=== PATIENT | male | born 1960 | race Caucasian/White ===

== ENCOUNTER 2016-12-18 11:18 | Inpatient (IN) | payer MEDICARE ==
[~2016-12-18] VITALS: Ht 190.5 cm; Wt 122.8 kg
[2016-12-18] VITALS (7 sets, daily range): BP systolic 109–182; BP diastolic 61–130; BMI 35.8
[2016-12-18 12:11] LABS: BASOPHILS 0.4 % (0.0-2.0); EOSINOPHILS 1.9 % (0-7); HEMATOCRIT 47.5 % (42.0-54.0); HEMOGLOBIN 15.3 g/dL (13.5-17.5); IMMATURE GRANULOCYTES 0.3 % (0-5); LYMPHOCYTES 36.3 % (15-50); MCH 28.2 pg (26.0-34.0); MCHC 32.2 g/dL (31.0-37.0); MCV 87.6 fL (80.0-100.0); MEAN PLATELET VOLUME 9.9 fL (7.4-10.4); MONOCYTES 9.4 % (2-11); NEUTROPHILS 51.7 % (40-80); PLATELET COUNT 224 10x3/uL (130-400); RBC 5.42 10x6/uL (4.20-6.10); RDW 14.9 % (11.5-14.5); WBC 11.8 10x3/uL (4.8-10.8)
[2016-12-18 12:25] LABS: ALBUMIN 2.9 g/dL (3.4-5.0); ALKALINE PHOSPHATASE 145 U/L (46-116); ALT (SGPT) 64 U/L (10-68); CALC OSMOLALITY 283 mosm/kg (275-300); CALCIUM 9.2 mg/dL (8.5-10.1); CHLORIDE - SERUM 107 mmol/L (98-107); CREATININE - SERUM 1.3 mg/dL (0.6-1.3); GLUCOSE 105 mg/dL (74-106); PROTEIN - SERUM 6.5 g/dL (6.4-8.2); SODIUM 141 mmol/L (136-145); UREA NITROGEN 20 mg/dL (7-18); eGFR NON AFRICAN AMERICAN 61 mL/min (90-120)
[2016-12-18 12:41] LABS: CKMB 7.1 U/L (0.0-3.6); PRO BNP 4340 pg/mL (0-125)
[2016-12-18 12:42] LABS: TROPONIN-I 0.108 ng/mL (0.000-0.060)
[2016-12-18 14:20] LABS: HEMOGLOBIN A1C 6.1 % (4.8-6.0)
[2016-12-18 15:09] LABS: LDL-HDL RATIO 3.3 ratio (1.5-3.5)
--- NOTE | 2016-12-18 16:17 | NUR ---
PATIENT HERE FROM ER VIA [facility]. ADMISSION IN PROGRESS. DR HERRERA PAGED FOR A B/P OF 182/130.
--- NOTE | 2016-12-18 16:18 | NUR ---
PER DR HERRERA, DR BROWN WILL HANDLE THE BLOOD PRESSURE.
--- NOTE | 2016-12-18 16:20 | NUR ---
DR KEVIN HAYNES.
--- NOTE | 2016-12-18 16:27 | NUR ---
SPOKE WITH DR BROWN. ONE TIME ORDER FOR CLONIDINE RECEIVED AND ORDER TO RESTART HOME BLOOD PRESSURE MEDICATIONS. PATIENT IS AWARE OF NAMES BUT NOT DOSES. CALL HAS BEEN PLACED TO [facility] TO OBTAIN LIST.
[2016-12-18] MEDS ORDERED: HYDROCODON-ACE1 EAC9 PO (16:42)
[2016-12-18] MEDS ORDERED: ZESTRIL40 MG PO (16:54)
[2016-12-18] MEDS ORDERED: TOPROL XL100 MG PO (16:54)
[2016-12-18] MEDS ORDERED: MOBIC7.5 MG PO (16:55)
--- NOTE | 2016-12-18 17:17 | NUR ---
PER DR BROWN, DR TORRES PAGED TO SEE IF OK TO START LOVENOX.
--- NOTE | 2016-12-18 17:20 | NUR ---
SPOKE WITH DR TORRES. HE IS OK WITH THE LOVENOX ORDER PER DR BROWN
[2016-12-18 17:46] LABS: UDS - AMPHET NEGATIVE QUAL (NEGATIVE); UDS - BARB NEGATIVE QUAL (NEGATIVE); UDS - BENZO NEGATIVE QUAL (NEGATIVE); UDS - COCAINE NEGATIVE QUAL (NEGATIVE); UDS - METH NEGATIVE QUAL (NEGATIVE); UDS - OPIATE POSITIVE QUAL (NEGATIVE); UDS - PCP NEGATIVE QUAL (NEGATIVE); UDS - THC NEGATIVE QUAL (NEGATIVE)
--- NOTE | 2016-12-18 19:40 | NUR ---
PT AOX4. SOB, DIMINISHED LUNG SOUNDS. NC @ 3L, SPO2 96. PT UP IN BED, HOB 40. PERIPHERAL PULSES WEAK. LT BKA. RT LOWER LEG/FOOT WITH DISCOLORATION (PURPLE) AND SORES TO TOES. NO C/O PAIN AT THIS TIME. VSS. FRESH WATER TO BEDSIDE. DEIES FURTHER NEEDS AT THIS TIME. ROOM VISIBLE FROM NURSES STATION. CALL LIGHT AND BEDSIDE TABLE WITHIN PT REACH. CPOC.
--- NOTE | 2016-12-18 21:33 | NUR ---
AT BEDSIDE, QUESTIONS ANSWERED AND UPDATE GIVEN. PT REPOSITIONS SELF WITH MINIMAL ASSISTANCE. VOICES NO NEEDS AT THIS TIME. CALL LIGHT AND BEDSIDE TABLE WITHIN PT REACH. ROOM VISIBLE FROM NURSES STATION. CPOC.
[2016-12-19] VITALS (24 sets, daily range): BP systolic 87–159; BP diastolic 35–111; Ht 190.5 cm; Wt 122.8 kg
[2016-12-19 04:49] LABS: BASOPHILS 0 % (0.0-2.0); EOSINOPHILS 0 % (0-7); HEMATOCRIT 49.9 % (42.0-54.0); HEMOGLOBIN 15.8 g/dL (13.5-17.5); IMMATURE GRANULOCYTES 0.2 % (0-5); LYMPHOCYTES 13.5 % (15-50); MCH 28.4 pg (26.0-34.0); MCHC 31.7 g/dL (31.0-37.0); MEAN PLATELET VOLUME 10.7 fL (7.4-10.4); MONOCYTES 2.5 % (2-11); NEUTROPHILS 83.8 % (40-80); PLATELET COUNT 235 10x3/uL (130-400); RBC 5.57 10x6/uL (4.20-6.10); WBC 11.7 10x3/uL (4.8-10.8)
[2016-12-19 04:54] LABS: MCV 89.6 fL (80.0-100.0)
[2016-12-19 05:06] LABS: ALBUMIN 2.9 g/dL (3.4-5.0); BILIRUBIN - TOTAL 1.02 mg/dL (0.2-1.3); CALCIUM 8.7 mg/dL (8.5-10.1); CARBON DIOXIDE 26.8 mmol/L (21.0-32.0); MAGNESIUM - SERUM 1.9 mg/dL (1.8-2.4); PROTEIN - SERUM 6.3 g/dL (6.4-8.2)
[2016-12-19 05:12] LABS: ANION GAP 13.7 mmol/L (8-16); CREATININE - SERUM 1.9 mg/dL (0.6-1.3); POTASSIUM - SERUM 5.5 mmol/L (3.5-5.1)
--- NOTE | 2016-12-19 06:00 | NUR ---
PT UP IN CHAIR, SOB AND DYSPNEA PRESENT. COUGH/DB WITH GOOD EFFORT. NC @ 6L, SPO2 97.
--- NOTE | 2016-12-19 07:30 | NUR ---
SHIFT ASSESSMENT VIA FLOWSHEET, SEE FOR DETAILS.
--- NOTE | 2016-12-19 08:15 | NUR ---
ASSISTED PT BACK TO BED.
--- NOTE | 2016-12-19 09:10 | NUR ---
NO VISITORS AT THIS TIME. PT IN BED, AROUSES TO VOICE. VSS, CALL LIGHT WITHIN REACH.
--- NOTE | 2016-12-19 11:00 | NUR ---
REASSESSMENT VIA FLOWSHEET, SEE FOR DETAILS.
--- NOTE | 2016-12-19 14:54 | NUR ---
Is the patient Alert and Oriented? Yes 0 * How many steps to enter\exit or inside your home? 1 0 * PCP DOES NOT HAVE ONE 0 * Pharmacy [facility] 0 * Preadmission Environment Home with Family 0 * ADLs Independent 0 * Equipment None 0 * List name and contact numbers for known caregivers / representatives who currently or will assist patient after discharge: SPOUSE: [place] [phone] 0 * Community resources currently utilized None 0 * Additional services required to return to the preadmission environment? No 0 * Can the patient safely return to the preadmission environment? Yes 0 * Has this patient been hospitalized within the prior 30 days at any hospital? No PATIENT IS AWAKE AND ALERT. HE STATES HE LIVES AT HOME WITH HIS , CHARLOTTE. HE STATES HE WAS INDEPENDENT IN HIS ADL'S PRIOR TO COMING TO THE HOSPITAL. PATIENT STATES HIS WILL BE AVAILABLE TO DRIVE HIM HOME AT DISCHARGE. HE DOES NOT HAVE A PCP. HE GETS HIS MEDS FROM [facility]. PATIENT DENIES USE OF ANY EQUIPMENT. HE STATES HE HAD HOME HEALTH FROM [facility] ABOUT 18 MONTHS AGO AFTER AN AMPUTATION. PATIENT STATES THERE IS ONLY 1 STEP TO ENTER HIS HOME. DISCHARGE NEEDS UNDETERMINED AT THIS TIME. CM TO FOLLOW.
--- NOTE | 2016-12-19 15:00 | NUR ---
REASSESSMENT VIA FLOWSHEET, SEE FOR DETAILS.
--- NOTE | 2016-12-19 18:30 | NUR ---
PT ASSISTED TO BSC.
--- NOTE | 2016-12-19 19:00 | NUR ---
REPORT RECEIVED AND ASSESSMENT COMPLETED. SEE FLOWSHEET FOR DETAILS. PT IN CHAIR. LEFT HAND SALINE LOCK IV PULLED OUT BY PT ON ACCIDENT. RIGHT HAND IV NO LONGER PATENT. WILL REPLACE.
--- NOTE | 2016-12-19 21:00 | NUR ---
2100 MEDS GIVEN. RIGHT HAND IV RESITED. NEW VEIN IN RIGHT HAND USED.
--- NOTE | 2016-12-19 23:26 | NUR ---
REASSESSMENT COMPLETED. SEE FLOWSHEET.
[2016-12-20] VITALS (23 sets, daily range): BP systolic 88–154; BP diastolic 59–122
--- NOTE | 2016-12-20 01:22 | NUR ---
PT ACCIDENTLY PULLED NEW IV OUT. WILL RESITE BEFORE NEXT MED IS GIVEN.
--- NOTE | 2016-12-20 03:00 | NUR ---
REASSESSMENT COMPLETED. SEE FLOWSHEET.
[2016-12-20 03:35] LABS: BASOPHILS 0.1 % (0.0-2.0); EOSINOPHILS 0 % (0-7); HEMATOCRIT 48.8 % (42.0-54.0); HEMOGLOBIN 15.7 g/dL (13.5-17.5); IMMATURE GRANULOCYTES 0.3 % (0-5); LYMPHOCYTES 8.5 % (15-50); MCH 28.4 pg (26.0-34.0); MCHC 32.2 g/dL (31.0-37.0); MCV 88.2 fL (80.0-100.0); MEAN PLATELET VOLUME 10.4 fL (7.4-10.4); NEUTROPHILS 86.1 % (40-80); PLATELET COUNT 230 10x3/uL (130-400); RBC 5.53 10x6/uL (4.20-6.10); WBC 18.4 10x3/uL (4.8-10.8)
[2016-12-20 03:53] LABS: ANION GAP 10.5 mmol/L (8-16); BILIRUBIN - TOTAL 0.57 mg/dL (0.2-1.3); CALCIUM 8.6 mg/dL (8.5-10.1); CARBON DIOXIDE 27.2 mmol/L (21.0-32.0); CREATININE - SERUM 1.8 mg/dL (0.6-1.3); MAGNESIUM - SERUM 1.9 mg/dL (1.8-2.4); PHOSPHOROUS 5.2 mg/dL (2.5-4.9); POTASSIUM - SERUM 4.7 mmol/L (3.5-5.1); PROTEIN - SERUM 6.3 g/dL (6.4-8.2)
--- NOTE | 2016-12-20 05:00 | NUR ---
NO CHANGES IN STATUS AT TIME. WILL MONITOR
--- NOTE | 2016-12-20 10:30 | NUR ---
REPORT RECD PT CARE ASSUMED. PT IS RESTING QUIETLY IN BED AT THIS TIME.
--- NOTE | 2016-12-20 11:30 | NUR ---
PT PROVIDED WITH LUNCH TRAY. PT CONTINUES TO REST WITH OUT COMPLAINT OR REQUEST.
--- NOTE | 2016-12-20 19:05 | NUR ---
SHIFT ASSESSMENT COMPLETE. PATIENT RESTING QUIETLY IN BED, IS ALERT AND ORIENTED. NC @ 3L, S1S2 NOTED, EXPIRATIORY WHEEZES HEARD WITH LUNG SOUNDS. BOWEL SOUNDS ACTIVE X4. ABDOMEN NON DISTENED, NON-TENDER TO PALPATION. PERIPHERAL PULSES +2, LEFT LEG BKA. PIV IN LEFT WRIST, SITE C/D/I. VSS, WILL CONTINUE TO MONITOR.
--- NOTE | 2016-12-20 19:30 | NUR ---
PIV IN LEFT WRIST INFILTRATED, RESITED TO LEFT HAND. 22G INSERTED PER 1 ATTEMPT. SITE IS DRESSED, C/D/I. PATIENT TOLERATED WELL.
--- NOTE | 2016-12-20 21:00 | NUR ---
2100 MEDS GIVEN, SANDWHICH GIVEN PER REQUEST. AT BEDSIDE. PATIENT DENIES FURTHER NEED. VSS.
--- NOTE | 2016-12-20 22:00 | NUR ---
PATIENT HAD LARGE, SOFT, LIGHT BROWN BM. BACK TO BED AND REPOSITIONED FOR COMFORT.
--- NOTE | 2016-12-20 23:00 | NUR ---
REASSESSMENT COMPLETE. NO CHANGES AT THIS TIME. VSS.
[2016-12-21] VITALS (13 sets, daily range): BP systolic 124–168; BP diastolic 11–106
--- NOTE | 2016-12-21 01:00 | NUR ---
PATIENT RESTING WITH EYES CLOSED. RR REGULAR WITH NON-LABORED BREATHING.
--- NOTE | 2016-12-21 03:00 | NUR ---
REASSESSMENT COMPLETE. NO ACUTE CHANGES.
[2016-12-21 04:49] LABS: BASOPHILS 0 % (0.0-2.0); EOSINOPHILS 0 % (0-7); HEMOGLOBIN 15.9 g/dL (13.5-17.5); IMMATURE GRANULOCYTES 0.3 % (0-5); LYMPHOCYTES 5.3 % (15-50); MCH 28.5 pg (26.0-34.0); MCHC 32.4 g/dL (31.0-37.0); MCV 87.8 fL (80.0-100.0); MEAN PLATELET VOLUME 10.7 fL (7.4-10.4); MONOCYTES 5.3 % (2-11); NEUTROPHILS 89.1 % (40-80); PLATELET COUNT 215 10x3/uL (130-400); RBC 5.58 10x6/uL (4.20-6.10); RDW 15.2 % (11.5-14.5); WBC 18.4 10x3/uL (4.8-10.8)
[2016-12-21 05:12] LABS: ALBUMIN 2.8 g/dL (3.4-5.0); ANION GAP 13.8 mmol/L (8-16); BILIRUBIN - TOTAL 0.4 mg/dL (0.2-1.3); CALCIUM 8.5 mg/dL (8.5-10.1); CARBON DIOXIDE 26.2 mmol/L (21.0-32.0); CREATININE - SERUM 1.7 mg/dL (0.6-1.3); PROTEIN - SERUM 6.2 g/dL (6.4-8.2)
--- NOTE | 2016-12-21 10:27 | NUR ---
0700 RECEIEVED PT LAYING IN BED EYES OPEN ALERT ORIENTED ABLE TO ANSWER ALL QUESTIONS APPROP. VSS 02 SAT 98% ON 3L LUNGS DIMINSHED ON LEFT WITH WHEEZES NOTED ON RIGHT. USES URINAL AND BSC. LEFT BKA NO C/O AT THIS TIME. 0730 BREAKFAST GIVEN 100% ATE 1000 RECEVED ORDERS TO MOVE TO THE FLOOR PER PCP
--- NOTE | 2016-12-21 11:08 | NUR ---
PT TO FLOOR FROM ICU, ALERT AND ORIENTED X3, LUNGS ON LEFT SOUND CLEAR RIGHT SIDE HAS SOME WHEEZING AND RUMBLING, PT REQUESTED TO SIT IN WHEELCHAIR FOR A WHILE IT HOW HE SITS AT HOME, ORIENTED TO ROOM, BED LOWEST POSITION, CALL LIGHT IN REACH, NO COMPLAINTS AT THIS TIME
--- NOTE | 2016-12-21 15:00 | NUR ---
SITTING UP IN CHAIR AT BEDSIDE. DENIES NEEDS. LEFT BKA HAS A SCABBED AREA TO INNER PORTION OF INCISION. WILL MONITOR.
--- NOTE | 2016-12-21 17:51 | NUR ---
PT RESTING QUIETLY IN BED, EASILY AROUSED, VOICES NO COMPLAINTS, MEDS GIVEN PER JAN, CALL LIGHT IN REACH, BED LOWEST POSITION, WILL CONTINUE TO MONITOR
--- NOTE | 2016-12-21 19:30 | NUR ---
REC'D IN BED WITH EYES CLOSED EASILY AROUSED WHEN NAME IS CALLED. RESP EVEN AND UNLABORED WITH NO DISTRESS NOTED. NO C/O NOTED OR VOICED. ASSESSMENT COMPLETED. C/L IN REACH AT BEDSIDE.
[2016-12-22] VITALS: BP 153/98
--- NOTE | 2016-12-22 00:18 | NUR ---
PATIENT RESTING WITH EYES CLOSED. NO SIGNS OF DISTRESS. BED IN LOWEST POSITION AND CALL LIGHT WITHIN REACH.
[2016-12-22 04:00] VITALS: BP 138/84
[2016-12-22 07:15] LABS: BASOPHILS 0 % (0.0-2.0); EOSINOPHILS 0 % (0-7); HEMATOCRIT 46.7 % (42.0-54.0); IMMATURE GRANULOCYTES 0.2 % (0-5); LYMPHOCYTES 5.8 % (15-50); MCH 27.9 pg (26.0-34.0); MCHC 32.1 g/dL (31.0-37.0); MEAN PLATELET VOLUME 10.2 fL (7.4-10.4); MONOCYTES 6.8 % (2-11); NEUTROPHILS 87.2 % (40-80); PLATELET COUNT 209 10x3/uL (130-400); RBC 5.37 10x6/uL (4.20-6.10); RDW 15.2 % (11.5-14.5); WBC 15.7 10x3/uL (4.8-10.8)
[2016-12-22 07:53] LABS: ANION GAP 13.1 mmol/L (8-16); BILIRUBIN - TOTAL 0.71 mg/dL (0.2-1.3); CALCIUM 8.3 mg/dL (8.5-10.1); CARBON DIOXIDE 27.8 mmol/L (21.0-32.0); CREATININE - SERUM 1.7 mg/dL (0.6-1.3); POTASSIUM - SERUM 3.9 mmol/L (3.5-5.1); PROTEIN - SERUM 6.1 g/dL (6.4-8.2)
[2016-12-22 08:04] VITALS: BP 160/98
--- NOTE | 2016-12-22 08:04 | NUR ---
AWAKE AND ALERT. ORIENTED X3. NO C/O AT THIS TIME. LUNGS WITH CRACKLES THROUGHTOUT RIGHT LUNGS, REPORTS COUGH WITH YELLOWISH SPUTUM. SKIN IS INTACT WITHOUT REDNESS EXCEPT SCABBED AREA TO LEFT BKA. THIS IS REPORTED TO BE OLD AND SHOWS NO SIGNS OF INFECTION. SL TO LEFT HAND PATENT WITHOUT REDNESS AT INSERTION SITE. DENIES NEEDS.
--- NOTE | 2016-12-22 10:00 | NUR ---
ATE ALL OF BREAKFAST. RESTING IN BED WITH EYES CLOSED. ENCOURAGED TO BE UP TODAY SO NOT TO GET CONFUSED WITH DAY/NIGHT.
--- NOTE | 2016-12-22 12:15 | NUR ---
LUNCH SERVED IN ROOM. FEEDS SELF. DENIES NEEDS.
[2016-12-22 12:28] VITALS: BP 150/102
--- NOTE | 2016-12-22 14:40 | NUR ---
PT. COMPLAINS OF LEAKING IV ON LEFT HAND. IV DISCONTINUED WITH CATHETER INTACT. PT. TOLERATED WITHOUT DIFFICULTY AT THIS TIME.
--- NOTE | 2016-12-22 15:00 | NUR ---
IV TO LEFT HAND LEAKING. RESITED TO RIGHT UPPER ARM AFTER 3 ATTEMPTS WITH 22G. PATIENT TOLERATED WITHOUT C/O PAIN.
[2016-12-22 16:14] VITALS: BP 168/94
--- NOTE | 2016-12-22 20:45 | NUR ---
PT EDUCATION REGARDING SMOKING AND QUITTING COMPLETED ALTERNATIVES GIVEN TO PT WHERE USE OF STRAWS, E-CIG WITH NO NICOTINE OILS, CHEW GUM, PATCH, AND SUCKERS PT VERBALIZED UNDERSTANDING AND APPERED TO HAVE WHAT TO, TO QUIT SMOKING. LUNGS CRACKLES BILATERAL UPPER LOBES AND DIMINISHED LOWER LOBES BILATERAL RESPERATIONS EVEN AND UNLABORED WILL MONITOR
[2016-12-22 21:00] VITALS: BP 162/96
[2016-12-23 02:00] VITALS: BP 166/90
[2016-12-23 05:35] LABS: BASOPHILS 0 % (0.0-2.0); EOSINOPHILS 0 % (0-7); HEMATOCRIT 46.5 % (42.0-54.0); IMMATURE GRANULOCYTES 0.3 % (0-5); LYMPHOCYTES 5.7 % (15-50); MCH 28.1 pg (26.0-34.0); MCHC 32.3 g/dL (31.0-37.0); MCV 87.1 fL (80.0-100.0); MONOCYTES 10.7 % (2-11); NEUTROPHILS 83.3 % (40-80); PLATELET COUNT 219 10x3/uL (130-400); RBC 5.34 10x6/uL (4.20-6.10); RDW 15.1 % (11.5-14.5); WBC 17.5 10x3/uL (4.8-10.8)
[2016-12-23 06:47] LABS: ALBUMIN 2.9 g/dL (3.4-5.0); ANION GAP 17.8 mmol/L (8-16); BILIRUBIN - TOTAL 0.73 mg/dL (0.2-1.3); CALCIUM 8.4 mg/dL (8.5-10.1); CARBON DIOXIDE 24.1 mmol/L (21.0-32.0); CREATININE - SERUM 2.1 mg/dL (0.6-1.3); POTASSIUM - SERUM 3.9 mmol/L (3.5-5.1); PROTEIN - SERUM 5.7 g/dL (6.4-8.2)
--- NOTE | 2016-12-23 08:33 | NUR ---
PT. AWAKE AND ALERT SITTING ON THE SIDE OF THE BED EATING BREAKFAST. PT DENIES NEEDS AT THIS TIME. RESP. EVEN AND NONLABORED PRODUCTIVE COUGH WITH GREENISH/YELLOWISH TO WHITE SPUTUM. LUNG SOUNDS RONCHI PRESENT BILATTERALLY WITH DIMINISHED LUNG SOUNDS ON LOWER LOBES. SKIN PINK WARM AND DRY WITH NO REDNESS LEFT BKA HEALED WITH DRY SKIN AT SI. IV SL TO RIGHT UPPER ARM CLEAN DRY PATENT AND INTACT. AND FLUSHED NO REDNESS AT OR AROUND SITE. [id number]. 500 ML OF CLEAR YELLOW URINE IN URINAL. BED AT LOWEST POSITION AND SR X 2 WITH CALL WITHIN REACH. WILL CONTINUE TO MONITOR.
[2016-12-23 08:52] VITALS: BP 173/117
--- NOTE | 2016-12-23 15:30 | NUR ---
NUTRITION MONITORING & EVAL CHART REVIEWED. PT TOLERATING AHA DIET. 100% INTAKE RECENT MEALS. WILL CONTINUE TO PROVIDE DIET, MONITOR PO INTAKE. RD FOLLOWING
[2016-12-23 15:32] VITALS: BP 162/117
[2016-12-23 16:52] LABS: ERYTHROCYTE SEDIMENTATION RATE 1 mm/hr (0-20)
--- NOTE | 2016-12-23 17:19 | NUR ---
PATIENT HAS LEFT AMA. ATTEMPTS TO PERSUADE PATIENT TO STAY WITHOUT SUCCESS. SL TO RIGHT UPPER ARM D/C WITH CATHETER INTACT.
[2016-12-25 20:08] LABS: SPE - A/G RATIO 1.2 (0.7-1.7); SPE - ALPHA-1 GLOBULIN 0.3 g/dL (0.0-0.4); SPE - ALPHA-2 GLOBULIN 0.7 g/dL (0.4-1.0); SPE - GAMMA GLOBULIN 0.6 g/dL (0.4-1.8); SPE - M-SPIKE Not Observed g/dL (Not Observed); SPE - TOTAL PROTEIN 5.5 g/dL (6.0-8.5)
--- NOTE | 2017-01-21 08:17 | EC ---
PATIENT:SHANTELL JACOBS DATE OF SERVICE: 12/18/16 SEX: M MEDICAL RECORD: [id number] DATE OF : 62 LOCATION:[facility] AGE OF PATIENT: 56 ADMISSION DATE: 12/18/16 REFERRING PHYSICIAN: INTERPRETING PHYSICIAN: RACHELLE MINOR M.D. ECHOCARDIOGRAM REPORT ECHO CHARGES 4 ECHO COMPLETE CLINICAL DIAGNOSIS: NEW ONSET CHF ECHOCARDIOGRAPHIC MEASUREMENTS (adult normal given) AC root (d.<3.7cm) 3.6 LV Septum d (<1.2 cm> 1.5 Valve Excursion 2.2 LV Septum (systole) 1.8 Left Atria (s.<4.0cm> 5.6 LVPW d(<1.2cm) 1.6 RV (d.<2.3cm) 3.7 LVPW (sytole) 1.8 LV diastole(<5.6CM) 6.2 MV E-F(>70mm/sec) LV systole 5.4 LVOT Diameter 2.5 MV exc.(>10mm) Est.ejection fraction (50-75%) Pericardial Effusion N DOPPLER: LVIT A 49.0 E 90.0 LA RVSP 46.0 LVOT 64.0 AOP1/2T Asc. Ao 109 RVOT 56.0 RA PA 51.0 AV Gradient Peak 4.8 AV Mean 2.1 AV Area 2.8 MV Gradient Peak 4.4 MV Mean 1.7 MV Area COMMENTS: Bicycle Mechanic: Matias SAVAGE Portable Pinch Riveter:Mulu Minor TAPE# PACS DATE OF SERVICE: 12/18/2016 INDICATION: Congestive heart failure. DESCRIPTION: Left ventricle is moderately dilated. There is severe LV dysfunction noted. His ejection fraction is in the order of 15% to 20%. There appears to be a calcified thrombus in the left ventricle apex. Mitral valve is structurally normal. There is moderate regurgitation seen. Left atrium is moderately dilated. The aortic valve is trileaflet. There is no stenosis or regurgitation seen. Right ventricle is moderately dilated. Tricuspid valve is ECHOCARDIOGRAM REPORT [id number] SHANTELL JACOBS normal. There is moderate regurgitation seen. Right atrium is moderately dilated. There is no pericardial effusion noted. IMPRESSION: 1. Severe left ventricular dysfunction with ejection fraction at 15% to 20% consistent with cardiomyopathy. 2. Moderate mitral regurgitation. 3. Moderate tricuspid regurgitation. 4. There is a thrombus noted in the left ventricle apex. It appears to be calcified and likely is a chronic finding. TRANSINT:[id number] Voice Confirmation ID: [id number] DOCUMENT ID: [id number] RACHELLE MINOR M.D. at 0817 CC: [id number] DICTATION DATE: 12/18/16 1530 SAW STRAIGHTENER: 12/18/16 1901 DIS IN 12/23/16 [facility] [address] [place] [address]
== END 2016-12-23 17:20 | disposition left against medical advice (07) | DRG 280 ==
LOC: D.ER 11:18 → D.ICU 13:44 → D.MS 13:44 → D.M2 13:44 → D.ICU 15:22 → D.MS 12-21 11:00
PROVIDERS: Emergency Medicine; Internal Medicine Nephrology; Internal Medicine Pulmonary Disease; ADMIT Family Medicine
DX: I13.0 Hypertensive heart and chronic kidney disease with heart failure and stage 1 through stage 4 chronic kidney disease, or unspecified chronic kidney disease (principal); J13 Pneumonia due to Streptococcus pneumoniae; I21.3 ST elevation (STEMI) myocardial infarction of unspecified site; J15.6 Pneumonia due to other Gram-negative bacteria; I50.23 Acute on chronic systolic (congestive) heart failure; J44.0 Chronic obstructive pulmonary disease with (acute) lower respiratory infection; N17.9 Acute kidney failure, unspecified; J44.1 Chronic obstructive pulmonary disease with (acute) exacerbation; I42.9 Cardiomyopathy, unspecified; R13.12 Dysphagia, oropharyngeal phase; N18.9 Chronic kidney disease, unspecified; E88.09 Other disorders of plasma-protein metabolism, not elsewhere classified; F17.200 Nicotine dependence, unspecified, uncomplicated; J30.9 Allergic rhinitis, unspecified; E87.5 Hyperkalemia; Z89.512 Acquired absence of left leg below knee; R74.8 Abnormal levels of other serum enzymes; I51.3 Intracardiac thrombosis, not elsewhere classified